=== PATIENT | female | born 1965 | race Caucasian/White ===

== ENCOUNTER → 2017-08-21 | Outpatient (CLI) | payer OTHER ==
[~2017-08-21] MED LIST: AMOX TR-K CLV1 EAC4 PO; CYMBALTA60 MG PO; DEBROX15 ML BOTH EARS; ENDOCET 5-3251 EACH PO; ERGOCALCIF50000 UNIT PO; ERYTHROMYC1 APPLICAT BOTH EYES; LAMICTAL100 MG PO; LYRICA200 MG PO; METHYLPHENIDATE5 MG PO; MOTRIN800 MG PO; NOHOMEMEDS; PREDNISONE20 MG PO; RISPERDAL; RISPERDAL0.25 MG PO; ULTRAM50 MG PO; VALACYCLOVIR500 MG PO
== END | disposition home or self-care (01) ==
LOC: RES 08-05 11:00
DX: J98.4 Other disorders of lung (principal)
CPT/HCPCS: 94060; 94726; 94729

== ENCOUNTER 2017-08-24 10:19 | Emergency (ER) | payer OTHER ==
[~2017-08-24] VITALS: Ht 162.6 cm; Wt 100.6 kg
[~2017-08-24 10:19] MED LIST changes: -AMOX TR-K CLV1 EAC4 PO; -CYMBALTA60 MG PO; -DEBROX15 ML BOTH EARS; -ENDOCET 5-3251 EACH PO; -ERGOCALCIF50000 UNIT PO; -ERYTHROMYC1 APPLICAT BOTH EYES; -LYRICA200 MG PO; -METHYLPHENIDATE5 MG PO; -MOTRIN800 MG PO; -PREDNISONE20 MG PO; -ULTRAM50 MG PO; -VALACYCLOVIR500 MG PO
[2017-08-24] MEDS ORDERED: ENDOCET 5-3251 EACH PO (10:33)
[2017-08-24] MEDS ORDERED: AMOX TR-K CLV1 EAC4 PO (10:33)
[2017-08-24] MEDS ORDERED: LYRICA200 MG PO (10:34)
[2017-08-24] MEDS ORDERED: METHYLPHENIDATE5 MG PO (10:34)
[2017-08-24] MEDS ORDERED: ERGOCALCIF50000 UNIT PO (10:34)
[2017-08-24] MEDS ORDERED: CYMBALTA60 MG PO (10:35)
[2017-08-24 11:40] LABS: HEMATOCRIT 40.4 % (36.0-46.0); HEMOGLOBIN 13.7 G/DL (11.9-15.5); MCH 30.8 PG (29.0-34.0); MCHC 33.9 G/DL (30.0-36.0); MCV 90.8 FL (83-99); PLATELET COUNT 313 K/uL (156-360); RBC DIS.WIDTH-CV 13.4 % (11.8-14.6); RED BLOOD COUNT 4.45 M/uL (3.80-5.20); WHITE BLOOD COUNT 8.2 K/uL (4.1-10.2)
[2017-08-24 11:56] LABS: CHLORIDE 104 mEq/L (99-109)
[2017-08-24 11:57] LABS: POTASSIUM 4.6 mEq/L (3.7-5.4); SODIUM 141 mEq/L (136-147)
[2017-08-24 11:58] LABS: GLUCOSE 102 mg/dL (70-99)
[2017-08-24 12:02] LABS: CREATININE 0.8 mg/dL (0.6-1.3); GFR ESTIMATE (CALCULATED) > 59 mL/min/
[2017-08-24 12:03] LABS: UREA NITROGEN (BUN) 12 mg/dL (9-23)
[2017-08-24] MEDS ORDERED: MOTRIN800 MG PO (12:26)
[2017-08-24] MEDS ORDERED: DEBROX15 ML BOTH EARS (12:26)
[2017-08-24 12:41] VITALS: BP 112/67
== END 2017-08-24 12:42 | disposition home or self-care (01) ==
LOC: EME 10:19
PROVIDERS: Nurse Practitioner Family
DX: R59.0 Localized enlarged lymph nodes (principal); H61.23 Impacted cerumen, bilateral; Z88.8 Allergy status to other drugs, medicaments and biological substances
CPT/HCPCS: 70486; 80048; 85027; 99281; 99283

== ENCOUNTER 2017-08-26 01:27 | Emergency (ER) | payer OTHER ==
[~2017-08-26] VITALS: Ht 162.6 cm; Wt 100.1 kg
[~2017-08-26 01:27] MED LIST changes: +AMOX TR-K CLV1 EAC4 PO; +CYMBALTA60 MG PO; +DEBROX15 ML BOTH EARS; +ENDOCET 5-3251 EACH PO; +ERGOCALCIF50000 UNIT PO; +LYRICA200 MG PO; +METHYLPHENIDATE5 MG PO; +MOTRIN800 MG PO
[2017-08-26] MEDS ORDERED: PREDNISONE20 MG PO (02:19)
[2017-08-26] MEDS ORDERED: ERYTHROMYC1 APPLICAT BOTH EYES (02:20)
[2017-08-26] MEDS ORDERED: ULTRAM50 MG PO (02:20)
[2017-08-26] MEDS ORDERED: VALACYCLOVIR500 MG PO (02:20)
[2017-08-26 03:21] VITALS: BP 144/90
== END 2017-08-26 03:24 | disposition home or self-care (01) ==
LOC: EME 01:27
DX: G51.0 Bell's palsy (principal); F17.200 Nicotine dependence, unspecified, uncomplicated
CPT/HCPCS: 99281; 99284; J7512

== ENCOUNTER → 2017-09-23 | Outpatient (CLI) | payer OTHER ==
[~2017-09-23] VITALS: Ht 162.6 cm; Wt 99.3 kg
[~2017-09-23] MED LIST changes: +ATIVAN0.5 MG PO; +ERYTHROMYC1 APPLICAT BOTH EYES; +PREDNISONE20 MG PO; +ULTRAM50 MG PO; +VALACYCLOVIR500 MG PO; +VITAMIN D2000 UNIT PO
== END | disposition home or self-care (01) ==
LOC: AMB 09:57
DX: Z12.11 Encounter for screening for malignant neoplasm of colon (principal); K29.70 Gastritis, unspecified, without bleeding; J45.909 Unspecified asthma, uncomplicated; G89.29 Other chronic pain; K21.9 Gastro-esophageal reflux disease without esophagitis; G57.92 Unspecified mononeuropathy of left lower limb; F42.9 Obsessive-compulsive disorder, unspecified; G62.9 Polyneuropathy, unspecified; G25.81 Restless legs syndrome; E55.9 Vitamin D deficiency, unspecified; Z88.5 Allergy status to narcotic agent; Z88.8 Allergy status to other drugs, medicaments and biological substances; Z90.710 Acquired absence of both cervix and uterus; Z80.0 Family history of malignant neoplasm of digestive organs; Z82.49 Family history of ischemic heart disease and other diseases of the circulatory system; Z82.61 Family history of arthritis
CPT/HCPCS: 88305; 88342 TC; J2250